=== PATIENT | female | born 1960 | race Caucasian/White ===

== ENCOUNTER 2018-12-14 06:50 | Day surgery (SDC) | payer BC ==
[2018-12-14] MEDS ORDERED: SOD CHLORIDE 0.9% 1,000 ML IV (09:00)
[2018-12-14] MEDS: CEFAZOLIN 2 GM/50 ML (PMX) 50 ML IVPB (09:00)
[2018-12-14] MEDS ORDERED: DIPHENHYDRAMINE 50 MG INJ IV (11:00)
[2018-12-14] MEDS ORDERED: METOCLOPRAMIDE 10 MG INJ IV (11:00)
[2018-12-14] MEDS ORDERED: ALBUTEROL 0.083% (NEB) 2.5 MG/3 ML AMP HHN (11:00)
[2018-12-14] MEDS ORDERED: MEPERIDINE 25 MG INJ IV (11:00)
[2018-12-14] MEDS ORDERED: HYDROmorphONE 1 MG/5 ML IV SYRINGE IV (11:00)
[2018-12-14] MEDS ORDERED: SUCCINYLCHOLINE CHLORIDE 100 MG/5 ML SYG IV ×2 (11:16→11:52)
[2018-12-14] MEDS ORDERED: FENTAnyl 50 MCG/ML VIAL (11:16)
[2018-12-14] MEDS ORDERED: ROPIVACAINE 0.5 % 30 ML VIAL (11:16)
[2018-12-14] MEDS ORDERED: ROCURONIUM 50 MG INJ (11:52)
[2018-12-14] MEDS ORDERED: PROPOFOL 20 ML (11:52)
[2018-12-14] MEDS ORDERED: SUGAMMADEX SODIUM 200 MG/2 ML VIAL IV (11:57)
[2018-12-14] MEDS ORDERED: LIDOCAINE 1% (MDV) 20 ML INJ (11:57)
[2018-12-14] MEDS: HYDROmorphONE 1 MG/5 ML IV SYRINGE IV ×2 (12:21→12:27)
[2018-12-14] MEDS: FENTAnyl 50 MCG/ML VIAL IV ×2 (12:33→12:42)
[2018-12-14] MEDS: HYDROCODONE/APAP (5/325) TAB PO ×2 (12:44→14:34)
[2018-12-14] MEDS: POLYMYXIN/BACITRACIN 1L IRRIG (13:27)
[2018-12-14] MEDS: ONDANSETRON 4 MG INJ IV (14:23)
== END 2018-12-14 15:20 | disposition home or self-care (01) ==
LOC: SDS 06:50
DX: K40.31 Unilateral inguinal hernia, with obstruction, without gangrene, recurrent (principal)
CPT/HCPCS: 49521